=== PATIENT | male | born 2000 | race Caucasian/White ===

== ENCOUNTER 2025-01-31 12:13 | Emergency (ER) | payer OTHER ==
[~2025-01-31] VITALS: Ht 177.8 cm; Wt 79.5 kg
[2025-01-31] MEDS: IBUPROFEN 600 MG TAB PO ONE (13:31)
[2025-01-31 16:07] VITALS: BP 145/82; TEMP 97; O2SAT 98
== END 2025-01-31 17:26 | disposition home or self-care (01) ==
LOC: M ED 12:13
DX: M25.562 Pain in left knee (principal); M25.572 Pain in left ankle and joints of left foot; W17.89XA Other fall from one level to another, initial encounter; Y92.138 Other place on military base as the place of occurrence of the external cause; Y93.A5 Activity, obstacle course; Y99.1 Military activity; Z91.011 Allergy to milk products